=== PATIENT | female | born 1995 | race Caucasian/White ===

== ENCOUNTER 2021-10-02 16:23 | Emergency (ER) | payer MEDICAID ==
[~2021-10-02] VITALS: Wt 46.8 kg
[2021-10-02 16:34] VITALS: BP 97/69
[2021-10-02] MEDS ORDERED: LEXAPRO 10MG10 MG PO (16:36)
[2021-10-02] MEDS ORDERED: BENZONATATE100 M2 (16:36)
[2021-10-02] MEDS ORDERED: PROAIR HFA0.09 MG/AC IH (16:36)
== END 2021-10-02 17:30 | disposition home or self-care (01) ==
LOC: ED 16:23
DX: U07.1 COVID-19 (principal); Z73.0 Burn-out; Z79.899 Other long term (current) drug therapy